=== PATIENT | female | born 1970 | race Two or more races ===

== ENCOUNTER → 2024-11-03 | Outpatient (CLI) | payer OTHER, MEDICAID, SELFPAY ==
--- NOTE | 2024-11-03 10:28 | XR_ITS ---
Examination: Cervical spine 3 views TECHNIQUE: AP lateral coned AP odontoid cervical spine 3 views Date and time: November 03, 2024 11:31 AM Comparison February 25, 2013 INDICATIONS: Neck pain beginning 13 days ago. FINDINGS: Straightening normal cervical lordosis. No cervical fracture. Intact odontoid. Moderate disc narrowing C4-C5 Advanced disc narrowing C5-C6 IMPRESSION: Advanced degenerative disc disease C5-C6
== END | disposition home or self-care (01) ==
PROVIDERS: PCP Family Medicine; Referring Provider Family Medicine; Visit Provider Family Medicine
DX: M50.322 Other cervical disc degeneration at C5-C6 level (principal)
CPT/HCPCS: 72040